=== PATIENT | female | born 1995 | race Two or more races ===

== ENCOUNTER 2017-06-23 16:45 | Emergency (ER) | payer OTHER ==
[~2017-06-23] VITALS: Ht 165.1 cm; Wt 89.8 kg
[2017-06-23 16:59] VITALS: BP 101/61
--- NOTE | 2017-06-23 17:03 | Emergency Room Report ---
History of Present Illness General Chief Complaint: General Complaint Source: Patient Present Illness HPI 21-year-old female presents the ER for multiple complaints. Patient reports symptoms of dizziness when she stands up too quickly, states that for the past few weeks intermittently, states she thinks she may be dehydrated. Patient also complaining of wetting her bed one time last night, states she went to the toilet after that and felt numbness over her body. Denies history of trauma. Denies history of recent drug use. Denies past medical history, cardiovascular disease. Denies acute symptoms in the ER. Denies acute symptoms. Patient reports she is from [place], is in [place] for rehabilitation for drug abuse. Reports that she is 5 months clean. Denies fever, chest pain, shortness of breath, dysuria, hematuria. Patient requesting testing for concern over possible . Reports she had an appointment with her primary care provider yesterday but he called in sick and she was unable to be seen. reports she is on control injection. Denies vaginal bleeding. Allergies: Coded Allergies: No Known Allergies (Unverified , 06/23/17) Patient History Past Medical History: see triage record Last Menstrual Period: on depo shot Reviewed Nursing Documentation: PMH: Agreed; PSxH: Agreed Nursing Documentation-PMH Past Medical History: No Stated History Review of Systems All Other Systems: negative except mentioned in HPI Physical Exam Vital Signs Date Time Temp Pulse Resp B/P (MAP) Pulse Ox O2 Delivery O2 Flow Rate FiO2 06/23/17 16:48 99.1 109 18 101/61 96 Room Air 99.1 Sp02 EP Interpretation: reviewed, normal General Appearance: well appearing, no apparent distress, alert, GCS 15, non- toxic Head: normocephalic, atraumatic Eyes: bilateral eye normal inspection, bilateral eye PERRL ENT: hearing grossly normal, normal pharynx, no angioedema, normal voice, uvula midline, moist mucus membranes Neck: full range of motion Respiratory: lungs clear, normal breath sounds, no rhonchi, no respiratory distress, no accessory muscle use, no wheezing, speaking full sentences Cardiovascular #1: regular rate, rhythm, no edema Gastrointestinal: non tender, soft, no mass, non-distended, no guarding, no rebound Genitourinary: no CVA tenderness Musculoskeletal: back normal, digits/nails normal, gait/station normal, normal range of motion, non-tender Neurologic: alert, oriented x3, responsive, wildlife biologist III-XII nml as tested, motor strength/tone normal, sensory intact, cerebellar normal, normal gait, speech normal Psychiatric: mood/affect normal Skin: no rash Lymphatic: no adenopathy Medical Decision Making PA Attestation Dr. Bush is my supervising Physician whom patient management has been discussed with. Diagnostic Impression: Primary Impression: Orthostatic dizziness Additional Impressions: Numbness and tingling Elevated white blood cell count ER Course Pt. presents to the ED with multiple complaints. Ddx considered but are not limited to dehydration Vital signs: are WNL, pt. is afebrile Ordered fluids, labs, UA, and urine . ER course: CBC shows elevation of WBC. Patient afebrile. CMP unremarkable. UA unremarkable. Urine negative. Urine Drug Screen negative Orthostatic vitals show possible orthostatic hypotension (results below), fluids provided. Patient reports feeling better following fluids. Consult Dr. Bush, will order repeat CBC CBC again shows elevation of WBC. Discussed possible causes of WBC elevation including infection, dehydration, stress. Offered patient admission to hospital , patient reports does not want to be admitted, wants to be discharged to home. Will order blood cultures. Instructed patient to follow-up with primary care provider. Will contact patient with results of blood culture. Physical exam benign, no signs of source of infection at this time, does not require antibiotics at this time. Follow-up with primary care provider and discuss referral to neurology for further evaluation of weakness and tingling, need evaluation to rule out underlying causes including but not limited to multiple sclerosis. Instructed patient to drink plenty of fluids, stay hydrated. Symptoms may be related to orthstatic hypotension. Patient seen and evaluated by Dr. Bush, agrees with treatment plan. Laying 66 pulse BP 109/66 Sitting 76 pulse BP103/68 Standing 103 pulse BP 120/87 DISCHARGE: At this time pt is stable for d/c to home. Patient is resting comfortably, in no acute distress, nontoxic appearing, talking without difficulty. Patient to take medications as instructed Will provide with patient care instructions and any necessary prescriptions. Care plan and follow-up instructions provided. Patient instructed to follow-up with primary care provider in 3 - 5 days. Patient questions asked and answered. Patient reports understanding and agreement to treatment plan. ER precautions given. Patient instructed to return to ER immediately for any new or worsening of symptoms including but not limited to increasing SOB, persistent fever, chest pain, intractable vomiting. - Please note that this Emergency Department Report was dictated using [employer] tester technology software, occasionally this can lead to erroneous entry secondary to interpretation by the dictation equipment. Labs Test 06/23/17 17:25 06/23/17 17:45 06/23/17 19:53 Differential Total Cells Counted 100 Neutrophils % (Manual) 66 % (45-75) Lymphocytes % (Manual) 27 % (20-45) Monocytes % (Manual) 4 % (1-10) Eosinophils % (Manual) 1 % (0-3) Basophils % (Manual) 1 % (0-2) Band Neutrophils 1 % (0-8) Platelet Estimate Adequate Platelet Morphology Normal Polychromasia 1+ Anisocytosis 1+ Sodium Level 138 MMOL/L (136-145) Potassium Level 4.5 MMOL/L (3.5-5.1) Chloride Level 104 MMOL/L (98-107) Carbon Dioxide Level 27 MMOL/L (21-32) Anion Gap 7 mmol/L (5-15) Blood Urea Nitrogen 10 mg/dL (7-18) Creatinine 0.9 MG/DL (0.55-1.30) Estimat Glomerular Filtration Rate > 60 mL/min (>60) Glucose Level 105 MG/DL (74-106) Calcium Level 9.2 MG/DL (8.5-10.1) Total Bilirubin 0.2 MG/DL (0.2-1.0) Aspartate Amino Transf (AST/SGOT) 21 U/L (15-37) Alanine Aminotransferase (ALT/SGPT) 22 U/L (12-78) Alkaline Phosphatase 103 U/L (46-116) Total Protein 8.0 G/DL (6.4-8.2) Albumin 3.7 G/DL (3.4-5.0) Globulin 4.3 g/dL Albumin/Globulin Ratio 0.9 (1.0-2.7) Urine Color Yellow Urine Appearance Clear Urine pH 7 (4.5-8.0) Urine Specific [place] 1.015 (1.005-1.035) Urine Protein 1+ (NEGATIVE) Urine Glucose (UA) Negative (NEGATIVE) Urine Ketones Negative (NEGATIVE) Urine Occult Blood Negative (NEGATIVE) Urine Nitrite Negative (NEGATIVE) Urine Bilirubin Negative (NEGATIVE) Urine Urobilinogen 1 MG/DL (0.0-1.0) Urine Leukocyte Esterase 1+ (NEGATIVE) Urine RBC 0-2 /HPF (0 - 2) Urine WBC 0-2 /HPF (0 - 2) Urine Squamous Epithelial Cells Few /LPF (NONE/OCC) Urine Calcium Oxalate Crystals Few /LPF (NONE) Urine Bacteria Few /HPF (NONE) Urine HCG, Qualitative Negative (NEGATIVE) Urine Opiates Screen Negative (NEGATIVE) Urine Barbiturates Screen Negative (NEGATIVE) Phencyclidine (PCP) Screen Negative (NEGATIVE) Urine Amphetamines Screen Negative (NEGATIVE) Urine Benzodiazepines Screen Negative (NEGATIVE) Urine Cocaine Screen Negative (NEGATIVE) Urine Marijuana (THC) Screen Negative (NEGATIVE) White Blood Count 18.8 K/UL (4.8-10.8) Red Blood Count 5.45 M/UL (4.20-5.40) Hemoglobin 14.3 G/DL (12.0-16.0) Hematocrit 44.2 % (37.0-47.0) Mean Corpuscular Volume 81 FL (80-99) Mean Corpuscular Hemoglobin 26.3 PG (27.0-31.0) Mean Corpuscular Hemoglobin Concent 32.4 G/DL (32.0-36.0) Red Cell Distribution Width 14.7 % (11.6-14.8) Platelet Count 318 K/UL (150-450) Mean Platelet Volume 8.5 FL (6.5-10.1) Neutrophils (%) (Auto) 66.6 % (45.0-75.0) Lymphocytes (%) (Auto) 25.6 % (20.0-45.0) Monocytes (%) (Auto) 5.6 % (1.0-10.0) Eosinophils (%) (Auto) 1.1 % (0.0-3.0) Basophils (%) (Auto) 1.0 % (0.0-2.0) Last Vital Signs Date Time Temp Pulse Resp B/P (MAP) Pulse Ox O2 Delivery O2 Flow Rate FiO2 06/23/17 16:59 99.1 105 18 101/61 96 Room Air 99.1 Disposition: HOME, SELF-CARE Condition: Stable Patient Instructions: Orthostatic Hypotension Additional Instructions: Followup with primary care provider, discuss referral to neuro. Results of blood cultures. Followup in 3-5 days for results. Take medications as directed. Patient questions asked and answered. ER precautions given, patient instructed to return to ER immediately for any new or worsening of symptoms including but not limited to fever, chest pain, shortness of breath, loss of function of extremities, intractable vomiting. Naeem Lara June 23, 2017 17:03
[2017-06-23 17:45] LABS: HEMATOCRIT 40.1 % (37.0-47.0); HEMOGLOBIN 13.3 G/DL (12.0-16.0); MEAN CORPUSCULAR VOLUME 81 FL (80-99); PLATELET COUNT 281 K/UL (150-450); RED BLOOD COUNT 4.94 M/UL (4.20-5.40); RED CELL DISTRIBUTION WIDTH 14.6 % (11.6-14.8); WHITE BLOOD COUNT 18.4 K/UL (4.8-10.8)
[2017-06-23 17:55] VITALS: BP 109/66
[2017-06-23 17:56] LABS: APPEARANCE,URINE CLEAR; BILIRUBIN, URINE NEGATIVE (NEGATIVE); GLUCOSE, URINE (UA) NEGATIVE (NEGATIVE); KETONES,URINE NEGATIVE (NEGATIVE); LEUKOCYTE ESTERASE ,URINE 1+ (NEGATIVE); NITRITE,URINE NEGATIVE (NEGATIVE); PH,URINE 7 (4.5-8.0); PROTEIN,URINE 1+ (NEGATIVE); UROBILINOGEN,URINE 1 MG/DL (0.0-1.0)
[2017-06-23 17:59] LABS: ANION GAP 7 mmol/L (5-15); BLOOD UREA NITROGEN 10 mg/dL (7-18); CALCIUM 9.2 MG/DL (8.5-10.1); CARBON DIOXIDE 27 MMOL/L (21-32); CHLORIDE 104 MMOL/L (98-107); CREATININE 0.9 MG/DL (0.55-1.30); POTASSIUM 4.5 MMOL/L (3.5-5.1); SODIUM 138 MMOL/L (136-145)
[2017-06-23 18:00] VITALS: BP 103/68
[2017-06-23 18:00] LABS: COLOR,URINE YELLOW
[2017-06-23 18:03] LABS: ALANINE AMINOTRANSFERASE 22 U/L (12-78); ALBUMIN 3.7 G/DL (3.4-5.0); ALBUMIN/GLOBULIN RATIO 0.9 (1.0-2.7); ALKALINE PHOSPHATASE 103 U/L (46-116); ASPARTATE AMINO TRANSFERASE 21 U/L (15-37); BILIRUBIN,TOTAL 0.2 MG/DL (0.2-1.0)
[2017-06-23 18:05] VITALS: BP 120/87
[2017-06-23 20:25] LABS: HEMATOCRIT 44.2 % (37.0-47.0); HEMOGLOBIN 14.3 G/DL (12.0-16.0); MEAN CORPUSCULAR VOLUME 81 FL (80-99); PLATELET COUNT 318 K/UL (150-450); RED BLOOD COUNT 5.45 M/UL (4.20-5.40); RED CELL DISTRIBUTION WIDTH 14.7 % (11.6-14.8); WHITE BLOOD COUNT 18.8 K/UL (4.8-10.8)
[2017-06-23 20:35] LABS: EOSINOPHILS % (AUTO) 1.1 % (0.0-3.0); LYMPHOCYTES % (AUTO) 25.6 % (20.0-45.0); MONOCYTES % (AUTO) 5.6 % (1.0-10.0); NEUTROPHILS % (AUTO) 66.6 % (45.0-75.0)
[2017-06-23 21:35] VITALS: BP 114/55
[2017-06-23 21:36] VITALS: BP 120/87
== END 2017-06-23 21:36 | disposition home or self-care (01) ==
LOC: EMR 18:01
DX: R42 Dizziness and giddiness (principal); R20.2 Paresthesia of skin; D72.829 Elevated white blood cell count, unspecified
CPT/HCPCS: 36415; 80053; 80307; 81003; 81025; 85007; 85025; 87040; 96374; 99284

== ENCOUNTER 2017-06-27 12:57 | Inpatient (IN) | payer OTHER ==
[~2017-06-27] VITALS: Ht 165.1 cm; Wt 86.2 kg
[2017-06-27] MEDS ORDERED: GABAPENTIN600 MG ORAL (13:11)
[2017-06-27] MEDS ORDERED: LYRICA200 MG ORAL (13:11)
[2017-06-27 14:24] LABS: ANION GAP 14 mmol/L (5-15); BLOOD UREA NITROGEN 11 mg/dL (7-18); CALCIUM 8.6 MG/DL (8.5-10.1); CARBON DIOXIDE 22 MMOL/L (21-32); CHLORIDE 106 MMOL/L (98-107); CREATININE 0.9 MG/DL (0.55-1.30); POTASSIUM 3.6 MMOL/L (3.5-5.1); SODIUM 141 MMOL/L (136-145)
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
[2017-06-27 14:29] LABS: BASOPHILS % (AUTO) 0.9 % (0.0-2.0); EOSINOPHILS % (AUTO) 1.8 % (0.0-3.0); HEMATOCRIT 41.5 % (37.0-47.0); HEMOGLOBIN 13.3 G/DL (12.0-16.0); LYMPHOCYTES % (AUTO) 26.3 % (20.0-45.0); MEAN CORPUSCULAR VOLUME 82 FL (80-99); MONOCYTES % (AUTO) 4.6 % (1.0-10.0); NEUTROPHILS % (AUTO) 66.5 % (45.0-75.0); PLATELET COUNT 292 K/UL (150-450); RED BLOOD COUNT 5.09 M/UL (4.20-5.40); RED CELL DISTRIBUTION WIDTH 14.8 % (11.6-14.8); WHITE BLOOD COUNT 17.8 K/UL (4.8-10.8)
[2017-06-27 14:37] LABS: ALANINE AMINOTRANSFERASE 34 U/L (12-78); ALBUMIN 3.4 G/DL (3.4-5.0); ALBUMIN/GLOBULIN RATIO 0.9 (1.0-2.7); ALKALINE PHOSPHATASE 135 U/L (46-116); ASPARTATE AMINO TRANSFERASE 13 U/L (15-37); BILIRUBIN,TOTAL 0.1 MG/DL (0.2-1.0)
[2017-06-27 15:00] VITALS: BP 121/63
[2017-06-27 15:36] LABS: APPEARANCE,URINE SLIGHTLY CLOUDY; BILIRUBIN, URINE NEGATIVE (NEGATIVE); COLOR,URINE PALE YELLOW; GLUCOSE, URINE (UA) NEGATIVE (NEGATIVE); KETONES,URINE NEGATIVE (NEGATIVE); LEUKOCYTE ESTERASE ,URINE 1+ (NEGATIVE); NITRITE,URINE NEGATIVE (NEGATIVE); PH,URINE 7 (4.5-8.0); PROTEIN,URINE 1+ (NEGATIVE); UROBILINOGEN,URINE NORMAL MG/DL (0.0-1.0)
[2017-06-27] MEDS ORDERED: LORazepam Inj 2mg/ml 1ml IV ONE (16:15)
--- NOTE | 2017-06-27 17:30 | Diagnostic Imaging Report ---
EXAM: MR Head Without Intravenous Contrast CLINICAL HISTORY: WEAK TECHNIQUE: Magnetic resonance images of the head/brain without intravenous contrast in multiple planes. COMPARISON: No relevant prior studies available. FINDINGS: Limitations: Limited due to motion. Brain: No acute intracranial hemorrhage or ischemia. No definite mass identified. Ventricles: Unremarkable. No ventriculomegaly. Bones/joints: Unremarkable. Sinuses: Unremarkable as visualized. Mastoid air cells: Unremarkable as visualized. Orbits: Unremarkable as visualized. IMPRESSION: 1. Limited due to motion. 2. No acute intracranial hemorrhage or ischemia.
[2017-06-27 18:00] VITALS: BP 130/71
[2017-06-27] MEDS ORDERED: Gadavist 7.5mMol/7.5ml vial IV PRN ×2 (18:00→21:30)
[2017-06-27] MEDS ORDERED: HYDROcodone/Acetamin 10/325 tab ORAL PRN (18:00)
[2017-06-27 21:29] VITALS: BP 130/73
[2017-06-27] MEDS ORDERED: traMADol 50mg tab ORAL PRN ×2 (21:30→21:39)
[2017-06-27 21:49] LABS: CREATINE KINASE 84 U/L (26-308)
[2017-06-27] MEDS: HYDROcodone/Acetamin 10/325 tab ORAL PRN (23:38)
[2017-06-27] MEDS: Levofloxacin 500mg tab ORAL SCH (23:39)
[2017-06-27] MEDS: Heparin 5000 units/ml inj SUBQ SCH (23:40)
[2017-06-28] VITALS: BP 114/66
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
[2017-06-28 04:57] VITALS: BP 121/70
--- NOTE | 2017-06-28 08:05 | General Progress Note ---
Assessment/Plan Problem List: (1) Lightheadedness ICD Codes: R42 - Dizziness and giddiness SNOMED: [id number] Status: stable Assessment/Plan abx for uti follow up cultures mri with contrast- doubt epidural abscess Subjective ROS Limited/Unobtainable: No Constitutional: Reports: no symptoms HEENT: Reports: no symptoms Cardiovascular: Reports: no symptoms Respiratory: Reports: no symptoms Gastrointestinal/Abdominal: Reports: no symptoms Genitourinary: Reports: no symptoms Neurologic/Psychiatric: Reports: tingling, tremors Endocrine: Reports: no symptoms Hematologic/Lymphatic: Reports: no symptoms Allergies: Coded Allergies: No Known Allergies (Unverified , 06/23/17) All Systems: reviewed and negative except above Subjective less tremor in right hand. no pain. no fevers. blds cxr negative, on abx for uti Objective Last 24 Hour Vital Signs Date Time Temp Pulse Resp B/P (MAP) Pulse Ox O2 Delivery O2 Flow Rate FiO2 06/28/17 04:57 97.9 108 18 121/70 97 97.9 06/28/17 00:00 97.8 111 17 114/66 100 97.8 06/27/17 21:29 98.4 110 18 130/73 95 98.4 06/27/17 18:01 111 24 101/73 98 Room Air 06/27/17 18:00 98.1 98 20 130/71 100 Room Air 98.1 06/27/17 15:00 95 25 121/63 99 Room Air 06/27/17 13:05 98.3 89 16 106/68 95 Room Air 98.2 Intake and Output 06/27/17 06/28/17 19:00 07:00 Intake Total 1000 ml 480 ml Output Total 100 ml Balance 900 ml 480 ml Intake Oral 480 ml IV Total 1000 ml Output Urine Total 100 ml # Voids 1 3 Laboratory Tests 06/27/17 13:55: White Blood Count 17.8H, Red Blood Count 5.09, Hemoglobin 13.3, Hematocrit 41.5 , Mean Corpuscular Volume 82, Mean Corpuscular Hemoglobin 26.2L, Mean Corpuscular Hemoglobin Concent 32.1, Red Cell Distribution Width 14.8, Platelet Count 292, Mean Platelet Volume 9.1, Neutrophils (%) (Auto) 66.5, Lymphocytes (% ) (Auto) 26.3, Monocytes (%) (Auto) 4.6, Eosinophils (%) (Auto) 1.8, Basophils ( %) (Auto) 0.9, Sodium Level 141, Potassium Level 3.6, Chloride Level 106, Carbon Dioxide Level 22, Anion Gap 14, Blood Urea Nitrogen 11, Creatinine 0.9, Estimat Glomerular Filtration Rate > 60, Glucose Level 128H, Calcium Level 8.6, Total Bilirubin 0.1L, Aspartate Amino Transf (AST/SGOT) 13L, Alanine Aminotransferase (ALT/SGPT) 34, Alkaline Phosphatase 135H, Total Protein 7.4, Albumin 3.4, Globulin 4.0, Albumin/Globulin Ratio 0.9L, Thyroid Stimulating Hormone (TSH) 1.340, Free Thyroxine 1.02, Human Chorionic Gonadotropin, Qual Negative 06/27/17 15:00: Urine Color Pale yellow, Urine Appearance Slightly cloudy, Urine pH 7, Urine Specific [place] 1.015, Urine Protein 1+H, Urine Glucose (UA) Negative, Urine Ketones Negative, Urine Occult Blood Negative, Urine Nitrite Negative, Urine Bilirubin Negative, Urine Urobilinogen Normal, Urine Leukocyte Esterase 1+H, Urine RBC 0, Urine WBC 5-10H, Urine Squamous Epithelial Cells ModerateH, Urine Bacteria Few, Urine HCG, Qualitative [Pending], Magnesium Level 1.8, Total Creatine Kinase 84, Vitamin B12 Level 487, Urine Opiates Screen Negative, Urine Barbiturates Screen Negative, Phencyclidine (PCP) Screen Negative, Urine Amphetamines Screen Negative, Urine Benzodiazepines Screen Negative, Urine Cocaine Screen Negative, Urine Marijuana (THC) Screen Negative, Rapid Plasma Reagin [Pending] Height (Feet): 5 Height (Inches): 5.00 Weight (Pounds): 190 General Appearance: WD/WN, alert Neck: supple Cardiovascular: normal rate Respiratory/Chest: lungs clear Abdomen: normal bowel sounds, non tender, soft Edema: no edema noted Arm (L), no edema noted Arm (R), no edema noted Leg (L), no edema noted Leg (R), no edema noted Pedal (L), no edema noted Pedal (R), no edema noted Generalized SOLOMON WATTS June 28, 2017 08:05
[2017-06-28] MEDS ORDERED: Gadavist 7.5mMol/7.5ml vial IV PRN (08:15)
[2017-06-28 09:00] VITALS: BP 104/56
[2017-06-28] MEDS: Heparin 5000 units/ml inj SUBQ SCH ×2 (09:00→21:48)
[2017-06-28] MEDS: HYDROcodone/Acetamin 10/325 tab ORAL PRN (10:29)
--- NOTE | 2017-06-28 14:05 | Diagnostic Imaging Report ---
EXAM: MR Cervical Spine With and without Intravenous Contrast CLINICAL HISTORY: WEAK TECHNIQUE: Magnetic resonance images of the cervical spine with intravenous contrast in multiple planes prior to and after intravenous contrast administration. COMPARISON: No relevant prior studies available. FINDINGS: Vertebrae: Unremarkable. No acute fracture. Spinal cord: Unremarkable. Normal signal. No abnormal enhancement. Soft tissues: Unremarkable. DISCS/SPINAL CANAL/NEURAL FORAMINA: C2-C3: Unremarkable. No significant disc disease. No stenosis. C3-C4: Unremarkable. No significant disc disease. No stenosis. C4-C5: Unremarkable. No significant disc disease. No stenosis. C5-C6: Unremarkable. No significant disc disease. No stenosis. C6-C7: Unremarkable. No significant disc disease. No stenosis. C7-T1: Unremarkable. No significant disc disease. No stenosis. IMPRESSION: Unremarkable cervical spine MRI.
--- NOTE | 2017-06-28 14:09 | Diagnostic Imaging Report ---
EXAM: MR Lumbar Spine With Intravenous Contrast CLINICAL HISTORY: INFECT TECHNIQUE: Magnetic resonance images of the lumbar spine with intravenous contrast in multiple planes. COMPARISON: No relevant prior studies available. FINDINGS: Vertebrae: Unremarkable. No acute fracture. Spinal cord: The conus terminates at L1. No abnormal enhancement. Soft tissues: Unremarkable. DISCS/SPINAL CANAL/NEURAL FORAMINA: L1-L2: Unremarkable. No significant disc disease. No stenosis. L2-L3: Unremarkable. No significant disc disease. No stenosis. L3-L4: Unremarkable. No significant disc disease. No stenosis. L4-L5: Unremarkable. No significant disc disease. No stenosis. L5-S1: Unremarkable. No significant disc disease. No stenosis. IMPRESSION: No acute findings.
--- NOTE | 2017-06-28 14:15 | Diagnostic Imaging Report ---
EXAM: MR Head With Intravenous Contrast CLINICAL HISTORY: WEAK TECHNIQUE: Magnetic resonance images of the head/brain with intravenous contrast, including postcontrast axial and coronal T1 FLAIR, and sagittal T2 FLAIR sequences. COMPARISON: MRI of the head without contrast, performed on 06/27/17. FINDINGS: Brain: Unremarkable. Unremarkable appearance of the parenchyma. No mass effect or midline shift. No visible hemorrhage. No abnormal contrast enhancement identified. Ventricles: Unremarkable. No ventriculomegaly. Bones/joints: Unremarkable. Sinuses: Unremarkable as visualized. No acute sinusitis. Mastoid air cells: Unremarkable as visualized. No mastoid effusion. Orbits: Unremarkable as visualized. IMPRESSION: Unremarkable head/brain MRI. No abnormal enhancement seen.
[2017-06-28 21:13] VITALS: BP 117/80
[2017-06-28] MEDS: Levofloxacin 500mg tab ORAL SCH (21:47)
[2017-06-29 00:46] VITALS: BP 121/77
[2017-06-29] MEDS: HYDROcodone/Acetamin 10/325 tab ORAL PRN (01:01)
[2017-06-29] MEDS ORDERED: LEVAQUIN500 MG ORAL (07:20)
--- NOTE | 2017-06-29 08:30 | Discharge Summary ---
DATE OF ADMISSION: 06/27/2017 DATE OF DISCHARGE: 06/29/2017 ADMISSION DIAGNOSES: 1. Generalized weakness. 2. Possibly urinary tract infection. 3. Rule out MS. DISCHARGE DIAGNOSES: 1. Generalized weakness. 2. Possibly urinary tract infection. 3. Rule out MS. HOSPITAL COURSE: This is a 21-year-old female, admitted with complaints of shaking of the right arm and generalized weakness and malaise. She was seen several days prior to admission. Blood cultures that time were negative. On this occasion, she did have white cells in her urine. She was started on antibiotic therapy. She had an MRI of the brain and the spine with contrast to rule out infection, to rule out multiple sclerosis, these were negative. On discharge, the patient's shaking had improved, although she states that she was not back to her baseline. was not worse. She has been instructed to follow up with her PMD. She is also encouraged to see a neurologist if symptoms do not improve. DISCHARGE MEDICATIONS: Please see discharge medication list for discharge medications. DIET: Regular diet. ACTIVITY: Ad-rajinder. David Roman M.D. DR: TERESITA JOB#: [id number] CC:
[2017-06-29] MEDS: Heparin 5000 units/ml inj SUBQ SCH ×2 (08:39→08:48)
[2017-06-29 09:00] VITALS: BP 109/58
--- NOTE | 2017-06-30 14:46 | Cardiology Report ---
APPROVED REPORT EKG Measurement Heart [id number] Normal sinus rhythm Possible Left atrial enlargement Borderline ECG
== END 2017-06-29 13:00 | disposition home or self-care (01) | DRG 463 ==
LOC: EMR 13:28 → 3E 15:05 → EDBEDREQ 15:29 → 3E 17:29
DX: N39.0 Urinary tract infection, site not specified (principal); E86.0 Dehydration; F17.200 Nicotine dependence, unspecified, uncomplicated; R53.1 Weakness; Z91.81 History of falling; R25.1 Tremor, unspecified; F19.11 Other psychoactive substance abuse, in remission; V89.2XXS Person injured in unspecified motor-vehicle accident, traffic, sequela; G89.29 Other chronic pain; M54.9 Dorsalgia, unspecified; R42 Dizziness and giddiness
CPT/HCPCS: 36415; 70551; 70552; 72156; 72158; 80053; 80307; 81003; 82550; 82607; 83036; 83735; 84439; 84443; 84703; 85025; 86592; 93005; 99285; A9585

== ENCOUNTER 2018-03-16 16:56 | Emergency (ER) | payer BC, OTHER ==
[~2018-03-16] VITALS: Ht 165.1 cm; Wt 90.7 kg
[2018-03-16 16:56] VITALS: BP 120/74
[~2018-03-16 16:56] MED LIST: GABAPENTIN600 MG ORAL; LEVAQUIN500 MG ORAL; LYRICA200 MG ORAL
[2018-03-16 17:00] VITALS: BP 120/74
--- NOTE | 2018-03-16 17:02 | NUR ---
ED Nurse Note: pt refused to be triage and wanted to sign AMA. Dr. Rajput explained the risks and benefits of AMA. pt. was given the copy of the AMA form but refused to take it.
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
== END 2018-03-16 17:05 | disposition left against medical advice (07) ==
LOC: EDBD 16:56 → EMR 17:03
DX: T40.2X1A Poisoning by other opioids, accidental (unintentional), initial encounter (principal); Y92.9 Unspecified place or not applicable
CPT/HCPCS: 99282

== ENCOUNTER 2018-03-26 23:00 | Emergency (ER) | payer BC, OTHER ==
[~2018-03-26] VITALS: Ht 165.1 cm; Wt 89.4 kg
[2018-03-26] MEDS ORDERED: DOXEPIN HCL100 MG ORAL (23:17)
[2018-03-26] MEDS ORDERED: ALPRAZOLAM1 MG ORAL (23:17)
[2018-03-26] MEDS ORDERED: LITHIUM CARBON300 MG ORAL (23:17)
[2018-03-26 23:25] VITALS: BP 120/74
--- NOTE | 2018-03-26 23:25 | NUR ---
ER Nurse Note: Pt came from home c/p bilateral edema in her lower legs. Pt stated it lasted for two weeks which radiated to her knees. Pt a&ox4, VSS, no signs of distress. Pt ambulatory with steady gait. ERMD at pt side; will continue to montior.
[2018-03-26] MEDS ORDERED: Ketorolac 30mg Inj IV STA (23:38)
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
--- NOTE | 2018-03-27 00:02 | Diagnostic Imaging Report ---
EXAM: XR Chest, 1 View CLINICAL HISTORY: SWELL TECHNIQUE: Frontal view of the chest. COMPARISON: No relevant prior studies available. FINDINGS: Lungs: Central airspace opacities concerning for an inflammatory or infectious process. Pleural space: Unremarkable. No pneumothorax. Heart: Unremarkable. No cardiomegaly. Mediastinum: Unremarkable. Bones/joints: Unremarkable. IMPRESSION: Central airspace opacities concerning for an inflammatory or infectious process.
--- NOTE | 2018-03-27 00:32 | NUR ---
ER Nurse Note: Unable to obtain IV access. Primary nurse, charge nurse attempted. Lab and ERMD notified. Awaiting lab to collect blood. Urine sent to lab, awaiting results. Will continue to monitor.
[2018-03-27 00:44] LABS: APPEARANCE,URINE CLEAR; BILIRUBIN, URINE NEGATIVE (NEGATIVE); COLOR,URINE PALE YELLOW; GLUCOSE, URINE (UA) NEGATIVE (NEGATIVE); KETONES,URINE NEGATIVE (NEGATIVE); LEUKOCYTE ESTERASE ,URINE NEGATIVE (NEGATIVE); NITRITE,URINE NEGATIVE (NEGATIVE); PH,URINE 8 (4.5-8.0); PROTEIN,URINE NEGATIVE (NEGATIVE); UROBILINOGEN,URINE NORMAL MG/DL (0.0-1.0)
--- NOTE | 2018-03-27 00:49 | NUR ---
Note afsanehone in EDM - 03/27/18 at 0106 by [email or web address] ER Nurse Note: Pt came from home c/p bilateral edema in her lower legs. Pt stated it lasted for two weeks which radiated to her knees. Pt a&ox4, VSS, no signs of distress. Pt ambulatory with steady gait. ERMD at pt side; will continue to montior.
--- NOTE | 2018-03-27 01:07 | NUR ---
Note afsanehone in EDM - 03/27/18 at 0236 by [email or web address] ER Nurse Note: Awaiting type and cross match from blood back and 2U of blood. Blood transfusion consent signed. ERMD aware. Pt alseep, VSS, no signs of distress. Will continue to montior.
[2018-03-27] MEDS ORDERED: Ketorolac 30mg Inj IM ONE (01:15)
[2018-03-27 01:33] LABS: BASOPHILS % (AUTO) 1.4 % (0.0-2.0); EOSINOPHILS % (AUTO) 4.3 % (0.0-3.0); HEMATOCRIT 35.1 % (37.0-47.0); HEMOGLOBIN 11.4 G/DL (12.0-16.0); LYMPHOCYTES % (AUTO) 32.1 % (20.0-45.0); MEAN CORPUSCULAR VOLUME 84 FL (80-99); MONOCYTES % (AUTO) 7.4 % (1.0-10.0); NEUTROPHILS % (AUTO) 54.8 % (45.0-75.0); PLATELET COUNT 288 K/UL (150-450); RED BLOOD COUNT 4.17 M/UL (4.20-5.40); RED CELL DISTRIBUTION WIDTH 14.2 % (11.6-14.8)
[2018-03-27 01:36] LABS: ANION GAP 7 mmol/L (5-15); BLOOD UREA NITROGEN 7 mg/dL (7-18); CALCIUM 8.8 MG/DL (8.5-10.1); CARBON DIOXIDE 29 MMOL/L (21-32); CHLORIDE 104 MMOL/L (98-107); CREATININE 0.8 MG/DL (0.55-1.30); POTASSIUM 3.6 MMOL/L (3.5-5.1); SODIUM 140 MMOL/L (136-145)
[2018-03-27 01:47] LABS: ALANINE AMINOTRANSFERASE 36 U/L (12-78); ALBUMIN/GLOBULIN RATIO 0.9 (1.0-2.7); ALKALINE PHOSPHATASE 103 U/L (46-116); ASPARTATE AMINO TRANSFERASE 27 U/L (15-37); BILIRUBIN,TOTAL 0.2 MG/DL (0.2-1.0); CREATINE KINASE 116 U/L (26-308)
[2018-03-27 01:57] LABS: INR 0.9 (0.9-1.1)
--- NOTE | 2018-03-27 02:25 | Diagnostic Imaging Report ---
EXAM: US Duplex Bilateral Lower Extremity Veins CLINICAL HISTORY: SWELL TECHNIQUE: Real-time duplex ultrasound scan of the bilateral lower extremity veins integrating B-mode two-dimensional vascular structure, Doppler spectral analysis, color flow Doppler imaging and compression. COMPARISON: No relevant prior studies available. FINDINGS: Right deep veins: Unremarkable. No DVT in the right common femoral, femoral, proximal deep femoral or popliteal veins. The veins demonstrate normal color flow, are normally compressible, with normal phasic flow and/or augmentation response. Right superficial veins: Unremarkable. No thrombus in the visualized right great saphenous vein. Left deep veins: Unremarkable. No DVT in the left common femoral, femoral, proximal deep femoral or popliteal veins. The veins demonstrate normal color flow, are normally compressible, with normal phasic flow and/or augmentation response. Left superficial veins: Unremarkable. No thrombus in the visualized left great saphenous vein. Soft tissues: No acute findings. No popliteal cyst. IMPRESSION: Normal bilateral lower extremity duplex venous ultrasound.
[2018-03-27 02:34] VITALS: BP 100/76
--- NOTE | 2018-03-27 02:40 | NUR ---
ER Nurse Note: Pt asleep, no signs of distress. Pt awaiting labs to make a decision if she wants to be admitted. All labs sent per ERMD orders. ERMD aware and notified. Will continue to radha.
[2018-03-27] MEDS ORDERED: FUROSEMIDE20 M1 ORAL (03:38)
[2018-03-27] MEDS ORDERED: TYLENOL325 MG ORAL (03:39)
[2018-03-27] MEDS ORDERED: Furosemide 40mg tab ORAL ONE (03:45)
[2018-03-27 04:15] VITALS: BP 102/72
--- NOTE | 2018-03-27 04:15 | NUR ---
ER Nurse Note: Pt calm, cooperative; alseep. Pt seen, treated; pt decided to leave [facility] medical advice. Risks explained by ERMXena and angela nurse; pt understood, decided to leave after explantion. Pt a&ox4, VSS, no signs of distress. Pt stated she wants to go home and rest. Pt left with all belongings. Ambulatory with steady gait, left via own transportation.
--- NOTE | 2018-03-30 14:23 | Cardiology Report ---
APPROVED REPORT EKG Measurement Heart [id number] HI [id number] Normal sinus rhythm Rightward axis Borderline ECG
== END 2018-03-27 04:15 | disposition left against medical advice (07) ==
LOC: EMR 23:39 → 2E 03-27 00:26 → UNDOADMIN 03-27 00:26 → EDBEDREQ 03-27 00:43
DX: R55 Syncope and collapse (principal); R50.9 Fever, unspecified; R60.0 Localized edema; M25.562 Pain in left knee; M25.561 Pain in right knee; F17.200 Nicotine dependence, unspecified, uncomplicated; F11.10 Opioid abuse, uncomplicated
CPT/HCPCS: 36415; 71045; 80053; 80307; 81003; 81025; 82550; 83605; 83880; 84484; 85025; 85610; 85730; 93005; 93970; 96372; 96374; 99284; J1885